=== PATIENT | female | born 1980 | race Caucasian/White ===

== ENCOUNTER 2018-06-21 09:42 | Emergency (ER) | payer SELFPAY ==
[~2018-06-21] VITALS: Ht 170.2 cm; Wt 77.1 kg
[2018-06-21 10:08] VITALS: BP 127/88
== END 2018-06-21 12:47 | disposition left against medical advice (07) ==
LOC: ER 09:42
DX: J02.9 Acute pharyngitis, unspecified (principal); I10 Essential (primary) hypertension; Z53.29 Procedure and treatment not carried out because of patient's decision for other reasons